=== PATIENT | male | born 1995 | race Caucasian/White ===

== ENCOUNTER 2020-02-14 22:16 | Emergency (ER) | payer BC ==
[~2020-02-14] VITALS: Ht 167.6 cm; Wt 87.1 kg
[2020-02-14 22:35] VITALS: BP 146/86
[2020-02-14] MEDS ORDERED: HYDR453.3 TP (23:15)
[2020-02-14] MEDS ORDERED: METH4TAB2 PO (23:15)
--- NOTE | 2020-02-14 23:15 | PHYS DOC ---
Past Medical History Past Medical History: Asthma Past Surgical History: No Surgical History Smoking Status: Never Smoker Alcohol Use: Heavy Drug Use: None General Adult EDM: Chief Complaint: SKIN RASH/ABSCESS HPI: HPI: Patient is a 24-year-old male who presents to the emergency room complaining of rash. This started several days ago. It has progressively spread. Initially he had a couple of lesions on his hand and now he has lesions on both arms, legs, neck. He states that it is extremely itchy. No one else in the household has a similar rash including his girlfriend. He does do a lot of outside work. Review of Systems: Review of Systems: General: Denies fever, chills, sweats, fatigue Eyes: Denies drainage, blurred vision, eye redness HENT: Denies rhinorrhea, sore throat, earache Respiratory: Denies cough, shortness of breath, wheezing Cardiac: Denies edema, palpitations, chest pain GI: Denies abdominal pain, Nausea, vomiting MSK: Denies back pain, neck pain Skin: Denies jaundice reports rash Neuro: Denies headache, dizziness Psychiatric: Denies SI/HI Heart Score: Risk Factors: Risk Factors: DM, Current or recent (<one month) smoker, HTN, HLP, family history of CAD, obesity. Risk Scores: Score 0 - 3: 2.5% MACE over next 6 weeks - Discharge Home Score 4 - 6: 20.3% MACE over next 6 weeks - Admit for Clinical Observation Score 7 - 10: 72.7% MACE over next 6 weeks - Early Invasive Strategies Physical Exam: PE: General: Awake, alert, NAD. Well Nourished, well hydrated. Cooperative HEENT: Atraumatic, EOMI, PERRL, airway patent, moist oral mucosa Neck: Supple, trachea midline Respiratory: CTA bilaterally, normal effort, no wheezing/crackles CV: RRR, no murmur, cap refill <2 GI: Soft, nondistended, nontender, no masses MSK: No obvious deformities Skin: Warm, dry, intact. Multiple small areas scabbed over on hands/arms/legs. Small area of erythema on neck with excoriation sanchez Neuro: A&O x3, speech NL, sensory and motor grossly intact, no focal deficits Psych: Normal affect, normal mood, not suicidal or homicidal Current Patient Data: Vital Signs: Vital Signs Date Time Temp Pulse Resp B/P (MAP) Pulse Ox O2 Delivery O2 Flow Rate FiO2 02/14/20 22:35 98.6 71 16 98 Room Air 98.6 EKG: EKG: [] Radiology/Procedures: Radiology/Procedures: [] Course & Med Decision Making: Course & Med Decision Making Pertinent Labs and Imaging studies reviewed. (See chart for details) Patient is 24-year-old male who presents to the emergency room complaining of a rash. Patient likely has contact dermatitis. While cannot fully rule out scabies, it is less likely as there are not areas of burrowing and his girlfriend does not have a similar rash. We will treat him with steroids and hydrocortisone cream. Patient's test results and vitals while in the ED were fully reviewed and discussed with the patient. Patient is stable and at this time does not need admission to the hospital. We have discussed strict return precautions and the importance of following up with their Primary Care Physician. Patient stated understanding and was given an opportunity to ask any questions. Patient is in agreement with plan. Suresh Disclaimer: Suresh Disclaimer: This electronic medical record was generated, in whole or in part, using a voice recognition dictation system. Departure Departure Impression: Primary Impression: Contact dermatitis Disposition: HOME, SELF-CARE Condition: STABLE Referrals: UNKNOWN PCP NAME (PCP) Patient Instructions: Contact Dermatitis, [id number] Hydrocortisone (HYDROCORTISONE) 453.6 Gm Cream..g. 1 KARINE TP PRN BID, #30 GM Prov: SYLVIA DECKER MD 02/14/20 Methylprednisolone (MEDROL) 4 Mg Tab.ds.pk 1 PKG PO UD for inflammation, #1 PKG Prov: SYLVIA DECKER MD 02/14/20 Justicifation of Admission Dx: Justifications for Admission: Justification of Admission Dx: N/A SYLVIA DECKER MD Feb 14, 2020 23:15
== END 2020-02-14 23:19 | disposition home or self-care (01) ==
LOC: ER 22:16
DX: L25.9 Unspecified contact dermatitis, unspecified cause (principal); J45.909 Unspecified asthma, uncomplicated
CPT/HCPCS: 99283